=== PATIENT | female | born 1960 | race Asian ===

== ENCOUNTER 2022-02-08 16:32 | Emergency (ER) | payer MEDICARE, OTHER ==
[~2022-02-08] VITALS: Ht 167.6 cm; Wt 72.6 kg
[2022-02-08 16:36] VITALS: BP_SYST 131
--- NOTE | 2022-02-08 18:00 | NUR ---
PATIENT AMBULATORY TO ER C/O EPIGASTRIC PAIN SEEN BY EDP WITH ORDER ASHLEY OUT.
[2022-02-08] MEDS ORDERED: NACL 0.9% 1,000 ML IV ONE (18:30)
[2022-02-08] MEDS ORDERED: ONDANSETRON HCL 4 MG/2 ML VIAL IVP ONE (18:30)
[2022-02-08] MEDS ORDERED: KETOROLAC TROMETHAMINE 30 MG VIAL IVP ONE (18:30)
--- NOTE | 2022-02-08 18:47 | NUR ---
PATIENT MEDICATED WILL CONTINUE TO MONITOR.
[2022-02-08] MEDS ORDERED: IBUP-1969 PO (19:16)
[2022-02-08] MEDS ORDERED: ONDA8TAB60 PO (19:16)
[2022-02-08] MEDS ORDERED: OMEP40CA20 PO (19:16)
--- NOTE | 2022-02-08 19:21 | NUR ---
PATIENT VERBALIZES FEELING BETTER.
--- NOTE | 2022-02-08 19:40 | NUR ---
PATIENT RESTING IN BED, NO VOICED C/O AT THIS TIME. INFORMED OF PLAN OF CARE, IVF INFUSING PER ORDER. NO S/S OF ANY DISTRESS NOTED, WILL CONTINUE TO MONITOR.
--- NOTE | 2022-02-08 19:40 | NUR ---
COVID 19 / FLU SWAB TEST SAMPLES SENT TO THE LAB
--- NOTE | 2022-02-08 20:54 | NUR ---
Patient given written and verbal discharge instructions and verbalizes understanding. ER MD discussed with patient the results and treatment provided. Patient in stable condition. ID arm band removed. IV catheter removed intact and dressing applied, no active bleeding. Rx of IBUPROFEN,OMEPRAZOLE,ZOFRAN given. Patient educated on pain management and to follow up with PMD. Pain Scale 0/10. Opportunity for questions provided and answered. Medication side effect fact sheet provided.
[2022-02-08 20:55] VITALS: BP_SYST 108
== END 2022-02-08 20:55 | disposition home or self-care (01) ==
LOC: SED 16:32
DX: R10.13 Epigastric pain (principal); R11.2 Nausea with vomiting, unspecified; R50.9 Fever, unspecified; Z79.899 Other long term (current) drug therapy
CPT/HCPCS: 99284; 96374; 71045; 96361; 96375; 81002; J1885; J2405; J7030